=== PATIENT | male | born 1950 | race African-American/Black ===

== ENCOUNTER 2021-09-22 18:32 | Inpatient (IN) | payer MEDICARE, MEDICAID ==
[~2021-09-22] VITALS: Ht 177.8 cm; Wt 81.7 kg
[2021-09-23 00:25] LABS: HEMATOCRIT. 42.2 % (42.0-52.0); HEMOGLOBIN. 13.5 g/dL (14.0-18.0); MEAN CORPUSCULAR HEMOGLOBIN 27.1 pg (28.0-32.0); MEAN CORPUSCULAR VOLUME 84.6 fL (80.0-94.0); MEAN PLATELET VOLUME 8.2 fl (7.4-10.4); PLATELET 339 x1000/uL (130-400); RED BLOOD CELL COUNT 4.99 mill/uL (4.7-6.1); RED CELL DISTRIBUTION WIDTH 15.4 % (11.6-14.6)
[2021-09-23 00:51] LABS: CHLORIDE 103 mEq/L (98-107)
[2021-09-23 05:49] LABS: PLATELET ESTIMATE NORMAL
[2021-09-23] MEDS: SODIUM CHLORIDE 0.9% 1,000 ML IV SCH ×2 (10:30→21:50)
[2021-09-23] MEDS ORDERED: DIPHENHYDRAMINE 50MG/ML VIAL IV PRN (10:30)
[2021-09-23] MEDS ORDERED: ACETAMINOPHEN 325MG TABLET PO PRN ×2 (10:30)
[2021-09-23] MEDS ORDERED: MAGNESIUM/ALUMINUM HYDROXIDE/SIMETHICONE 30ML UDC PO PRN (10:30)
[2021-09-23] MEDS ORDERED: CLONIDINE 0.1MG TABLET PO PRN (10:30)
[2021-09-23] MEDS ORDERED: ONDANSETRON HCL 4MG/2ML INJ IV PRN (10:30)
[2021-09-23 12:00] VITALS: BP 154/66
[2021-09-23 12:42] VITALS: BP 154/66
[2021-09-23 20:00] VITALS: BP 112/58
[2021-09-24] VITALS: BP 110/62
[2021-09-24 04:00] VITALS: BP 122/68
[2021-09-24] MEDS: SODIUM CHLORIDE 0.9% 1,000 ML IV SCH ×2 (05:49→15:35)
[2021-09-24 08:00] VITALS: BP 111/69
[2021-09-24 08:04] LABS: BASOPHILS % 0.4 % (0.0-2.0); EOSINOPHILS % 0.5 % (0.0-5.0); HEMATOCRIT. 41.3 % (42.0-52.0); HEMOGLOBIN. 13.6 g/dL (14.0-18.0); LYMPHOCYTES % 16.3 % (20.0-50.0); MEAN CORPUSCULAR HEMOGLOBIN 27.6 pg (28.0-32.0); MEAN CORPUSCULAR VOLUME 84.1 fL (80.0-94.0); MEAN PLATELET VOLUME 8.7 fl (7.4-10.4); MONOCYTES % 7.5 % (2.0-8.0); NEUTROPHILS % 75.3 % (40.0-76.0); PLATELET 290 x1000/uL (130-400); RED CELL DISTRIBUTION WIDTH 15.5 % (11.6-14.6)
[2021-09-24 08:46] LABS: CLARITY URINE CLEAR (CLEAR); COLOR URINE YELLOW (YELLOW); KETONES URINE NEGATIVE (NEGATIVE); LEUKOCYTE ESTERASE URINE 3+ (NEGATIVE); NITRITE URINE NEGATIVE (NEGATIVE); OCCULT BLOOD URINE NEGATIVE (NEGATIVE); PROTEIN URINE NEGATIVE (NEGATIVE); SPECIFIC GRAVITY URINE 1.014 (1.005-1.030)
[2021-09-24 08:55] LABS: CHLORIDE 106 mEq/L (98-107)
[2021-09-24 09:02] LABS: PHOSPHORUS 2.3 mg/dL (2.5-4.9)
[2021-09-24 09:10] LABS: *AMPHETAMINES SCREEN URINE NEGATIVE (NEGATIVE); *BARBITURATES SCREEN URINE NEGATIVE (NEGATIVE); *BENZODIAZEPINES SCREEN URINE NEGATIVE (NEGATIVE); *COCAINE SCREEN URINE NEGATIVE (NEGATIVE); CANNABINOID URINE SCREEN NEGATIVE (NEGATIVE); METHADONE URINE SCREEN NEGATIVE (NEGATIVE); OPIATES URINE SCREEN NEGATIVE (NEGATIVE); PHENCYCLIDINE URINE SCREEN NEGATIVE (NEGATIVE)
[2021-09-24 12:00] VITALS: BP 121/74
[2021-09-24 16:00] VITALS: BP 155/77
[2021-09-24 20:00] VITALS: BP 150/56
[2021-09-25] VITALS: BP 129/78
[2021-09-25] MEDS: SODIUM CHLORIDE 0.9% 1,000 ML IV SCH ×3 (03:23→21:26)
[2021-09-25 04:00] VITALS: BP 127/46
[2021-09-25 08:00] VITALS: BP 147/99
[2021-09-25 12:00] VITALS: BP 151/74
[2021-09-25] MEDS ORDERED: LEVOFLOXACIN 500MG TABLET PO NR (12:45)
[2021-09-25 15:28] VITALS: BP_SYST 140; BP_SYST 146; BP_DIAS 59; BP_DIAS 70
[2021-09-25 16:00] VITALS: BP 146/59
[2021-09-26 08:04] VITALS: BP 150/70
[2021-09-26] MEDS: SODIUM CHLORIDE 0.9% 1,000 ML IV SCH (08:25)
[2021-09-26] MEDS ORDERED: AMLODIPINE 5MG TABLET PO SCH (09:00)
[2021-09-26 12:00] VITALS: BP 157/79
== END 2021-09-26 14:30 | disposition home or self-care (01) | DRG 690 ==
LOC: ER 18:32 → 8WST 09-23 04:17 → ENRESERV 09-23 09:03
PROVIDERS: ADMIT Internal Medicine; ATTEND Internal Medicine
DX: N39.0 Urinary tract infection, site not specified (principal); I69.351 Hemiplegia and hemiparesis following cerebral infarction affecting right dominant side; K52.9 Noninfective gastroenteritis and colitis, unspecified; I10 Essential (primary) hypertension; I49.5 Sick sinus syndrome; F17.200 Nicotine dependence, unspecified, uncomplicated; J44.9 Chronic obstructive pulmonary disease, unspecified
CPT/HCPCS: 36415; 71045; 80048; 80053; 80305; 81003; 83735; 83880; 84100; 84443; 84484; 85025; 87077; 87186; 93005; 93306; 93970; 97162; 99285